=== PATIENT | female | born 1990 | race Caucasian/White ===

== ENCOUNTER → 2016-11-04 11:48 | Outpatient (CLI) | payer MEDICAID ==
[~2016-11-04 11:48] MED LIST: FERROUS SULFAT325 MG PO; FLUTICASONE PRO16 GM NASAL; IBUPROFEN600 MG PO; PERCOCET 5-3251 TAB PO
[2016-11-05 02:29] VITALS: BMI 22.5
== END | disposition home or self-care (01) ==
LOC: D.LDO 11:48
DX: Z34.93 Encounter for supervision of normal pregnancy, unspecified, third trimester (principal); Z3A.39 39 weeks gestation of pregnancy

== ENCOUNTER 2016-11-05 00:33 | Inpatient (IN) | payer MEDICAID ==
[~2016-11-05] VITALS: Ht 162.6 cm; Wt 59.4 kg
[2016-11-05 01:29] LABS: HEMATOCRIT 33.1 % (36.0-48.0); HEMOGLOBIN 11.2 g/dL (12-16); MCH 33.1 pg (26.0-34.0); MCHC 33.8 g/dL (31.0-37.0); MCV 97.9 fL (80.0-100.0); MEAN PLATELET VOLUME 10.2 fL (7.4-10.4); RBC 3.38 10x6/uL (4.00-5.40); RDW 12.8 % (11.5-14.5); WBC 13.7 10x3/uL (4.8-10.8)
[2016-11-05 01:39] LABS: UDS - AMPHET NEGATIVE QUAL (NEGATIVE); UDS - BARB NEGATIVE QUAL (NEGATIVE); UDS - BENZO NEGATIVE QUAL (NEGATIVE); UDS - COCAINE NEGATIVE QUAL (NEGATIVE); UDS - METH NEGATIVE QUAL (NEGATIVE); UDS - OPIATE NEGATIVE QUAL (NEGATIVE); UDS - PCP NEGATIVE QUAL (NEGATIVE); UDS - THC NEGATIVE QUAL (NEGATIVE)
[2016-11-05 02:29] VITALS: BP 119/76; Ht 162.6 cm; Wt 59.4 kg
--- NOTE | 2016-11-05 03:30 | NUR ---
RECEIVED PATIENT FROM VIA WHEELCHAIR TO ROOM 1220. ORIENTED TO ROOM AND BED CONTROLS. FOB HERE. STATUS POST WITH 1st DEGREE LACERATION. NO EPISIOTOMY. SALINE LOCK TO R WRIST AREA. INTRODUCED SELF. PLAN OF CARE INITIATED.
[2016-11-05 07:30] VITALS: BP 94/64
--- NOTE | 2016-11-05 07:30 | NUR ---
PT WAS RECEIVED THIS AM LYING IN BED. VSS. SHE OFFERS NO COMPLAINTS. HER PAIN IS A 0/10. SHE IS HAVING SMALL LOCIA RUBRA.GEN- AWAKE AND ALERT, LUNG- CLEAR. HEART- RRR. ABD SOFT FUNDUS AT U 2. EXT- NO EDEMA. PT HAS BEEN UP AND AMBULATORY AND IS VOIDING WITHOUT DIFFICULTY. BED IS LOW. SIDE RAILS UP X 2 AND CALL LIGHT IN REACH.
--- NOTE | 2016-11-05 10:30 | NUR ---
PT IS RESTING IN BED. OFFERS NO COMPLAINTS. BED IS LOW, SIDE RAILS UP X 2 AND CALL LIGHT IN REACH. PAIN LEVEL IS 0.
[2016-11-05 13:05] LABS: BASOPHILS 0.1 % (0.0-2.0); EOSINOPHILS 0.7 % (0-7); HEMATOCRIT 30.3 % (36.0-48.0); IMMATURE GRANULOCYTES 0.4 % (0-5); LYMPHOCYTES 13.5 % (15-50); MCH 32.7 pg (26.0-34.0); MEAN PLATELET VOLUME 9.6 fL (7.4-10.4); MONOCYTES 3.9 % (2-11); NEUTROPHILS 81.4 % (40-80); PLATELET COUNT 270 10x3/uL (130-400); RBC 3.06 10x6/uL (4.00-5.40); RDW 12.7 % (11.5-14.5); WBC 13.7 10x3/uL (4.8-10.8)
--- NOTE | 2016-11-05 15:56 | NUR ---
PT IS RESTING IN BED. OFFERS NO COMPLAINTS. STATES SHE DOES NOT NEED ANYTHING.
--- NOTE | 2016-11-05 17:22 | NUR ---
SALINE LOCK R WRIST D'CD. TIP INTACT.
--- NOTE | 2016-11-05 17:34 | NUR ---
PT'S DINNER TRAY SERVED. PT IS HUNGRY. OFFERS NO COMPLAINTS. BED IS LOW, CALL LIGHT IN REACH, SIDE RAILS UP X 2.
[2016-11-05 19:12] VITALS: BP 111/66
--- NOTE | 2016-11-05 19:12 | NUR ---
SHIFT ASSESSMENT COMPLETED. PAIN 12/11. VSS. FUNDUS FIRM, U2, SMALL AMT RUBRA LOCHIA NOTED TO PERIPAD, NO CLOTS. BOWEL SOUNDS PRESENT, STATES THAT SHE IS PASSING FLATUS. ICE WATER GIVEN. REQUEST MOTRIN, GIVEN PER REQUEST AT 1920. S/O AT BEDSIDE HOLDING INFANT AT THIS TIME. BED IN LOW POSITION. CL/PHONE WITHIN REACH. DENIES ADDITIONAL NEEDS AT THIS TIME. WILL CONT TO MONITOR AND ASSIST PRN. UPPER SIDE RAILS X2.
--- NOTE | 2016-11-05 20:03 | NUR ---
PT REQUESTS TO SHOWER AT THIS TIME. DENIES PAIN AT THIS TIME. TOWELS, TOOTH BRUSH, TOOTHPASTE, AND SOAP GIVEN. PT DENIES NEED FOR ASSISTANCE WITH SHOWERING. LINENS CHANGED.
--- NOTE | 2016-11-05 20:21 | NUR ---
SHOWER COMPLETED, PT RESTING AT THIS TIME IN BED. ICE WATER GIVEN PER REQUEST. DENIES NEEDS. S/O REMAINS AT BEDSIDE, SUPPORTIVE OF PT.
--- NOTE | 2016-11-05 21:14 | NUR ---
PT STATES THAT SHE HAS NOT HAD BM SINCE DELIVERY OF AND HAS NOT HAD MILK OF MAG BEEN GIVEN TODAY. MILK OF MAG GIVEN PER ORDERS. DENIES ADDITIONAL NEEDS AT THIS TIME. IN NBN, PT STATES THAT SHE IS GOING TO TRY TO [place] FOR A COUPLE OF HOURS. WILL CONT TO MONITOR.
--- NOTE | 2016-11-05 22:08 | NUR ---
PT RESTING WITH EYES CLOSED. RESPIRATIONS REGULAR, NO S/S OF DISTRESS NOTED. WILL CONT TO MONITOR AND ASSIST PRN.
--- NOTE | 2016-11-06 00:02 | NUR ---
PT REMAINS ASLEEP. RESPIRATIONS REGULAR NO S/S OF DISTRESS NOTED. SPOUSE REMAINS AT BEDSIDE SLEEPING.
--- NOTE | 2016-11-06 02:29 | NUR ---
ROUNDS MADE. SPOUSE REMAINS AT BEDSIDE SLEEPING IN RECLINER. PT AROUSED TO DOOR OPENING, DENIES NEEDS/PAIN AT THIS TIME. WILL CONT TO MONITOR AND ASSIST PRN. REINFORCED USE OF CL USE FOR NEEDS, VERBALIZED UNDERSTANDING.
--- NOTE | 2016-11-06 04:45 | NUR ---
ROUNDS MADE, PT JUST RETURNING TO BED FROM VOIDING. PAIN 2/10, ABD CRAMPING. REQUESTS MOTRIN.
--- NOTE | 2016-11-06 04:54 | NUR ---
PAIN 2/10, "A LITTLE CRAMPING." MOTRIN GIVEN PER ORDERS AND PT REQUEST. ICE WATER GIVEN TO PT AND COFFEE TO SPOUSE. PT REQUESTS BE BROUGHT TO ROOM, TO ROOM BY RN AND IDENTIFIED WITH WRIST BANDS. DENIES FURTHER NEEDS AT THIS TIME.
--- NOTE | 2016-11-06 05:39 | NUR ---
PAIN 0/10 AT THIS TIME. PT SITTING UP IN BED BONDING WITH INFANT. DENIES NEEDS AT THIS TIME. WILL CONT TO MONITOR AND ASSIST PRN.
[2016-11-06] MEDS ORDERED: FLUTICASONE PRO16 GM NASAL (06:11)
[2016-11-06] MEDS ORDERED: FERROUS SULFAT325 MG PO (06:13)
[2016-11-06 06:14] LABS: RAPID PLASMA REAGIN Non Reactive (Non Reactive)
--- NOTE | 2016-11-06 06:43 | NUR ---
PT SITTING UP IN BED BONDING WITH INFANT. DENIES NEEDS AT THIS TIME. SPOUSE REMAINS AT BEDSIDE.
[2016-11-06 07:30] VITALS: BP 90/57
--- NOTE | 2016-11-06 07:30 | NUR ---
PT WAS RECEIVED THIS AM LYING IN BED. SHE STATES NO PAIN. HER PAIN IS 0 ON NUMERIC SCALE. STATES LIGHT LOCHIA. NO PROBLEMS VOIDING. ASSESSMENT AND VITALSIGNS TAKEN AND DOCUMENTED. BOWEL SOUNDS X 4. LUNGS CLEAR BILATERLY. ABDOMEN SOFT WITH FIRM FUNDUS AT U2. NO EDEMA NOTED IN EXTREMITIES. BED IN LOWEST POSITION, CALL LIGHT WITHIN REACH, S/R UP X 2. STATES NO FURTHER NEEDS AT THIS TIME.
--- NOTE | 2016-11-06 08:25 | NUR ---
PT SITTING IN BED FOB HOLDING INFANT AT BEDSIDE FEEDING. PT ASKS IF SHE COULD GO OUTSIDE TO SMOKE. THIS NURSE ADVISED GOING OUT OF HOSPITAL AGAINST POLICY. SPOKE TO HER ABOUT POSSIBLE DISCHARGE TODAY AND SHE AND FOB SEEMED EXCITED TO GO HOME. S/R UP X2, BED IN LOWEST POSITION, PHONE AND CALL LIGHT WITHIN REACH.
--- NOTE | 2016-11-06 08:29 | NUR ---
PT SETTING UP IN BED AWAKE AND ALERT. SMILING AND VISITING WITH MAN IN ROOM. HOLDING INFANT. CHEERFUL MOOD. NO DISTRESS NOTED. DENIES NEEDS AT THIS TIME.
[2016-11-06] MEDS ORDERED: IBUPROFEN600 MG PO (08:37)
[2016-11-06] MEDS ORDERED: PERCOCET 5-3251 TAB PO (08:38)
--- NOTE | 2016-11-06 09:15 | NUR ---
PT SITTING UP IN BED. FOB AT BEDSIDE. STATES PAIN 0 ON NUMERIC SCALE. STATES NO NEEDS AT THIS TIME. PROVIDED FRESH ICE WATER.
--- NOTE | 2016-11-06 11:11 | NUR ---
PT BACK FROM [place]. STATES LOCHIA LIGHT. VOIDING WITH NO PROBLEMS. STATES PAIN 0 ON NUMERIC SCALE AND HAS NO NEEDS AT THIS TIME.
--- NOTE | 2016-11-06 12:37 | NUR ---
PT SITTING IN BED WATCHING TV AND TALKING TO FOB. STATES NO PAIN AT THIS TIME. WE TALKED ABOUT DISCHARGING OR THE OPTION OF ROOMING IN IF INFANT WERE TO HAVE TO STAY. STATES NO NEEDS AT THIS TIME. WILL CONTINUE TO MONITOR.
--- NOTE | 2016-11-06 13:20 | NUR ---
PT HOLDING INFANT SPEAKING SOFTLY. FOB AT BEDSIDE. PT STATES NO PAIN OR NEEDS AT THIS TIME.
--- NOTE | 2016-11-06 14:08 | NUR ---
PT SITTING IN BED HOLDING AND TALKING TO . FOB AT BEDSIDE. PROVIDED SODA AND ICE REQUESTED. STATES NO NEEDS AT THIS TIME. WILL CONTINUE TO MONITOR.
--- NOTE | 2016-11-06 15:10 | NUR ---
ADMINISTERED MMR INNOCULATION TOLERATED WELL. FOB AT BEDSIDE DRESSING FOR DISCHARGE.
--- NOTE | 2016-11-06 15:45 | NUR ---
WENT OVER DISCHARGE PAPERS WITH PT AND FOB. HAVE CALLED FOR WHEELCHAIR. INFANT STRAPPED INTO CAR SEAT. FOB GOING TO PULL CAR AROUND AND WARM UP.
--- NOTE | 2016-11-06 16:04 | NUR ---
PT DISCHARGED VIA WHEELCHAIR TO VEHICLE. SMILING AND HAPPY TO GO HOME WITH .
== END 2016-11-06 16:07 | disposition home or self-care (01) | DRG 775 ==
LOC: D.LDO 00:33 → D.LD 00:40 → D.WS 00:54 → D.LDO 00:54 → D.WS 03:38
PROVIDERS: ADMIT Specialist
PROC: 10E0XZZ Delivery of Products of Conception, External Approach (ICD-10-PCS; principal; 2016-11-05)
PROC: 0HQ9XZZ Repair Perineum Skin, External Approach (ICD-10-PCS; 2016-11-05)
DX: O99.334 Smoking (tobacco) complicating childbirth (principal); Z3A.39 39 weeks gestation of pregnancy; Z37.0 Single live birth; R87.612 Low grade squamous intraepithelial lesion on cytologic smear of cervix (LGSIL); O77.0 Labor and delivery complicated by meconium in amniotic fluid; O36.5930 Maternal care for other known or suspected poor fetal growth, third trimester, not applicable or unspecified; O99.324 Drug use complicating childbirth; F12.90 Cannabis use, unspecified, uncomplicated; O70.0 First degree perineal laceration during delivery; O26.893 Other specified pregnancy related conditions, third trimester; Z67.91 Unspecified blood type, Rh negative

== ENCOUNTER 2018-07-03 00:10 | Emergency (ER) | payer MEDICAID ==
[~2018-07-03] VITALS: Ht 162.6 cm; Wt 52.3 kg
[2018-07-03 00:21] VITALS: Ht 162.6 cm; Wt 52.3 kg
[2018-07-03 00:39] LABS: APPEARANCE CLOUDY (CLEAR); COLOR YELLOW (YELLOW); NITRITE POSITIVE (NEGATIVE); PROTEIN 1+ mg/dL (NEGATIVE); SPECIFIC GRAVITY 1.015 (1.005-1.020)
[2018-07-03 00:40] LABS: BILIRUBIN NEGATIVE (NEGATIVE); GLUCOSE NEGATIVE (NEGATIVE); KETONE NEGATIVE (NEGATIVE); UROBILINOGEN NORMAL (NORMAL)
[2018-07-03 00:42] LABS: HCG URINE NEGATIVE (NEGATIVE)
[2018-07-03 00:44] LABS: BACTERIA MANY /hpf (NONE SEEN); EPITHELIAL CELLS 0-5 /hpf (0-5); MUCUS <1+ /lpf (NONE SEEN); WHITE CELLS - URINE >50 /hpf (0-5)
[2018-07-03 00:46] LABS: HEMATOCRIT 32.9 % (36.0-48.0); HEMOGLOBIN 11.7 g/dL (12-16); LYMPHOCYTES 12.8 % (15-50); MCH 33.2 pg (26.0-34.0); MCHC 35.6 g/dL (31.0-37.0); MCV 93.5 fL (80.0-100.0); MEAN PLATELET VOLUME 9.1 fL (7.4-10.4); NEUTROPHILS 80.7 % (40-80); RBC 3.52 10x6/uL (4.00-5.40); RDW 11.6 % (11.5-14.5); WBC 8.8 10x3/uL (4.8-10.8)
[2018-07-03 00:51] LABS: PLATELET COUNT 161 10x3/uL (130-400)
[2018-07-03] MEDS ORDERED: CHERATUSSIN AC473 ML PO (00:54)
[2018-07-03] MEDS ORDERED: CIPRO500 MG PO (00:54)
[2018-07-03] MEDS ORDERED: MEDROL DOSE PACK4 MG PO (00:54)
[2018-07-03 01:30] VITALS: BP 132/79
== END 2018-07-03 01:30 | disposition home or self-care (01) ==
LOC: D.ER 00:10
PROVIDERS: Family Medicine
DX: N39.0 Urinary tract infection, site not specified (principal); J40 Bronchitis, not specified as acute or chronic; J02.9 Acute pharyngitis, unspecified